=== PATIENT | male | born 1935 | race Caucasian/White ===

== ENCOUNTER 2016-08-27 09:32 | Outpatient (CLI) | payer MEDICARE | END 2016-08-27 09:33 | disposition short-term general hospital (02) | LOC: EMS 09:32 | PROVIDERS: ATTEND Surgery | DX: R11.2 Nausea with vomiting, unspecified (principal); R42 Dizziness and giddiness | CPT/HCPCS: A0170; A0425; A0427 ==

== ENCOUNTER 2018-03-27 12:08 | Emergency (ER) | payer MEDICARE ==
--- NOTE | 2018-03-27 13:19 | XRAY Report ---
Reason: fall Procedure Date: 03/27/2018 Accession Number: [id number] / [id number] Procedure: XR - Wrist 4 View LT CPT Code: FULL RESULT: EXAM: LEFT WRIST RADIOGRAPHY EXAM DATE: 03/27/2018 01:03 PM. CLINICAL HISTORY: Fall. COMPARISON: None. TECHNIQUE: 4 views. FINDINGS: Bones: Normal. No fractures or bone lesions. Joints: Degenerative changes of the first carpometacarpal interaction as well as a small amount of sclerosis along the first carpal row the level of the lunate. No definite dislocation. Soft Tissues: Normal. No soft tissue swelling. IMPRESSION: No acute fracture or dislocation is identified. RADIA
--- NOTE | 2018-03-27 14:16 | ED Physician Documentation ---
PD HPI UPPER EXT INJURY - Stated complaint Stated Complaint: GLF-L WRIST INJ - Chief complaint Chief Complaint: Trauma Ext - History obtained from History obtained from: Patient - History of Present Illness Location: Left, Wrist Type of injury: Fall (while walking, tripped and fell forward couple days ago) Review of Systems Cardiac: denies: Chest pain / pressure GI: denies: Abdominal Pain Skin: denies: Abrasion (s), Laceration (s) Neurologic: denies: Focal weakness, Numbness, Altered mental status, Head injury PD PAST MEDICAL HISTORY - Past Medical History Cardiovascular: Hypertension, High cholesterol, Atrial fibrillation Neuro: Dementia GI: GERD - Present Medications Home Medications: Ambulatory Orders Medication Instructions Recorded Confirmed Doxazosin [Cardura] 09/15/15 Finasteride 09/15/15 Naltrexone [Naltrexone Base 3 mg PO 03/27/18 Monohydrate] - Allergies Allergies/Adverse Reactions: Allergies Allergy/AdvReac Type Severity Reaction Status Date / Time Sulfa (Sulfonamide Allergy Unknown Verified 03/27/18 12:38 Antibiotics) - Social History Does the pt smoke?: No Smoking Status: Never smoker Does the pt drink ETOH?: No - Immunizations Immunizations are current?: Yes - POLST Patient has POLST: No PD ED PE NORMAL - Vitals Vital signs reviewed: Yes - General General: Alert and oriented X 3, No acute distress, Well developed/nourished - HEENT HEENT: Atraumatic - Neck Neck: Supple, no meningeal sign, No adenopathy - Cardiac Cardiac: RRR, No murmur - Respiratory Respiratory: Clear bilaterally - Derm Derm: Normal color, Warm and dry - Extremities Extremities: Other (left wrist with swelling and tenderness at the distal radius dorsally. Normal pulses, color and cap refill. Limited ROM of the wrist due to swelling and discomfort. ) - Neuro Neuro: Alert and oriented X 3, No motor deficit, No sensory deficit Results - Vitals Vitals: Oxygen O2 Source Room air - Rads (name of study) wrist left xray Radiology: Prelim report reviewed (no fractures), EMP read contemporaneously, See rad report PD MEDICAL DECISION MAKING - ED course Complexity details: reviewed results, considered differential, d/w patient Departure - Departure Disposition: 01 Home, Self Care Clinical Impression: Left wrist sprain Qualifiers: Encounter type: initial encounter Qualified Code(s): S63.502A - Unspecified sprain of left wrist, initial encounter Fall from slip, trip, or stumble Qualifiers: Encounter type: initial encounter Qualified Code(s): W01.0XXA - Fall on same level from slipping, tripping and stumbling without subsequent striking against object, initial encounter Condition: Stable Record reviewed to determine appropriate education?: Yes Instructions: ED Sprain Wrist Follow-Up: Allyssa Mahoney PA [Primary Care Provider] - Comments: Use a wrist splint for the next week or so to guard the motion of the wrist and allow better for the swelling to come down. Ice and rested often today and tomorrow. Otherwise activity as able with the hand. Your x-ray is good without any signs of fracture. However it obviously sprained well with the swelling and tenderness. This may take 1-3 weeks to improve. Tylenol or ibuprofen if needed for pains and swelling. Discharge Date/Time: 03/27/18 14:38
[2018-03-27] MEDS ORDERED: ACETAMINOPHEN 325 MG TABLET PO STA (14:22)
[2018-03-27 14:40] VITALS: BP 110/88
== END 2018-03-27 14:38 | disposition home or self-care (01) ==
LOC: ED 12:08
DX: S63.502A Unspecified sprain of left wrist, initial encounter (principal); W01.0XXA Fall on same level from slipping, tripping and stumbling without subsequent striking against object, initial encounter; Y93.01 Activity, walking, marching and hiking; I10 Essential (primary) hypertension; F03.90 Unspecified dementia, unspecified severity, without behavioral disturbance, psychotic disturbance, mood disturbance, and anxiety
CPT/HCPCS: 73110; 99282; 99283; A9270